=== PATIENT | male | born 1965 | race Hispanic/Latino ===

== ENCOUNTER 2021-12-28 02:04 | Emergency (ER) | payer OTHER ==
[2021-12-28] MEDS ORDERED: Ketorolac Tromethamine 30 MG/ML VIAL ONE (02:30)
[2021-12-28] MEDS ORDERED: Orphenadrine Citrate 60 MG/2 ML VIAL ONE (02:30)
== END 2021-12-28 03:09 | disposition home or self-care (01) ==
LOC: MADERS 02:04
DX: G89.29 Other chronic pain (principal); M54.50 Low back pain, unspecified; Z79.84 Long term (current) use of oral hypoglycemic drugs; Z79.899 Other long term (current) drug therapy
CPT/HCPCS: 96372; 99283; J1885; J2360